=== PATIENT | male | born 1955 | race Caucasian/White ===

== ENCOUNTER 2020-07-13 09:20 | Day surgery (SDC) | payer MEDICARE ==
--- NOTE | 2020-07-07 12:47 | HP ---
DATE OF SURGERY: 07/13/2020 HISTORY OF PRESENT ILLNESS: The patient had a right hemicolectomy back in 2006 for appendicitis. He has been seeing Dr. Harris Shelby in [place] for colectomy for a large polyp. He has not had a colonoscopy since this procedure. He denies any signs or symptoms right now. He denies family history of colon cancer. He reports he has a random pressure in the mid sternal area. PAST MEDICAL HISTORY: Obesity. Hypertension. Bladder dysfunction. Neuropathy. Hyperlipidemia. PAST SURGICAL HISTORY: Tonsil and adenoidectomy. Gastric bypass. Cathryn-En-Y. Ventral hernia. Right hemicolectomy. Appendectomy. Cholecystectomy. Bilateral knee replacement. ALLERGIES: NKDA. MEDICATIONS: B12, B-complex, calcium, multivitamin, Lisinopril, gabapentin, atorvastatin, mirabegron. FAMILY HISTORY: Heart disease. Diabetes. SOCIAL HISTORY: None reported. REVIEW OF SYSTEMS: CONSTITUTIONAL: Denies fever or chills. CHEST: Denies shortness of breath. CVS: Denies chest pain. ABDOMEN: Reports epigastric pain. Denies nausea, vomiting, diarrhea, constipation or rectal bleeding. PHYSICAL EXAMINATION: GENERAL: No acute distress. CHEST: Nonlabored. No shortness of breath. CVS: Regular rate and rhythm. ABDOMEN: Soft, nontender to palpation. INTEGUMENTARY: Negative. NEUROLOGIC: Alert. PSYCHIATRIC: Appropriate. IMPRESSION: Screening colonoscopy and epigastric pain. He has history of colon polyps. PLAN: EGD and colonoscopy with Dr. Dez Marvin. As dictated by Silva Curtis NP.
[2020-07-13] MEDS ORDERED: VERSED 5 MG/5 ML IV ONE (09:21)
[2020-07-13] MEDS ORDERED: DEMEROL 50 MG IJ ONE (09:21)
[2020-07-13] MEDS ORDERED: Lactated Ringers 1,000 ML IV SCH (10:00)
[2020-07-13 12:12] VITALS: PULSE 74; O2SAT 97
[2020-07-13 12:19] VITALS: BP 129/97
--- NOTE | 2020-07-13 13:18 | OP ---
SURGERY DATE/TIME: 07/13/2020 1117 PREOPERATIVE DIAGNOSIS: Follow up for colon polyps, follow up right hemicolectomy. POSTOPERATIVE DIAGNOSIS: Normal residual colon. He does have a satisfactory length of colon about a normal colon width. PROCEDURE: Colonoscopy complete. SURGEON: Dez Marvin M.D. ANESTHESIA: IV sedation monitored 15 minutes. COMPLICATIONS: None. CONDITION: Stable. INDICATION: A patient requiring evaluation. He's had a right hemicolectomy and he has a history of polyps. DESCRIPTION OF PROCEDURE: He was taken to endoscopy. Left lateral decubitus position. Anal digital examination satisfactory. Prostate satisfactory. Scope introduced. Scope advanced to the end. The end was satisfactory. Circumferential withdrawal. Prep score was excellent. There was a little enlargement of diameter and there was some redundancy especially considering he has had a resection. The anastomosis itself was not visible. There were no visible mucosal deformity from the residual stump to the anus. The patient tolerated the procedure satisfactorily. PLAN: Follow up in five years.
== END 2020-07-13 12:20 | disposition home or self-care (01) ==
LOC: SDC 09:20
PROVIDERS: ATTEND Surgery
DX: Z12.11 Encounter for screening for malignant neoplasm of colon (principal); Z86.010 Personal history of colon polyps; Z90.49 Acquired absence of other specified parts of digestive tract; I10 Essential (primary) hypertension; E78.5 Hyperlipidemia, unspecified; Z79.899 Other long term (current) drug therapy
CPT/HCPCS: J2175; J2250